=== PATIENT | female | born 1995 | race Caucasian/White ===

== ENCOUNTER 2021-03-05 09:59 | Emergency (ER) | payer OTHER, SELFPAY ==
[2021-03-05 10:11] VITALS: BP 127/90; PULSE 93; RESP 16; TEMP 36.5; O2SAT 99
--- NOTE | 2021-03-05 10:49 | ED.URI ---
HPI - URI/Sore Throat General Chief Complaint: Upper Respiratory Infection Stated Complaint: sore throat Time Seen by Provider: 03/05/21 11:05 Source: patient and RN notes reviewed Mode of arrival: ambulatory Limitations: no limitations History of Present Illness HPI Narrative: 26-year-old female presents with concern for 1 week history of sore throat, fatigue, chest congestion and tightness, rhinorrhea, cough. Reports she has been taking Mucinex without relief. Reports one episode of vomiting related to forceful coughing. Reports trouble sleeping at night due to cough. Reports she is vaccinated for Covid. Reports she took an at-home rapid Covid test on Thursday that was negative. 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 She has been vaccinated for Covid. MD elicited complaint: sore throat and nasal congestion Related Data Allergies Allergy/AdvReac Type Severity Reaction Status Date / Time No Known Allergies Allergy Verified 03/05/21 10:30 Review of Systems Review of Systems: CONSTITUTIONAL: Denies malaise, chills, sweats, or fever. Reports fatigue EYES: Denies visual changes, redness, or discharge. ENT: Reports rhinorrhea, congestion, and sore throat. Denies sinus pain, otalgia CARDIOVASCULAR: Denies chest pain, palpitations, or edema. RESPIRATORY: Reports cough, chest congestion and tightness. Denies dyspnea. GASTROINTESTINAL: Denies abdominal pain, nausea, diarrhea. Reports one episode of vomiting related to coughing SKIN: Denies rash or itching. MUSCULOSKELETAL: Denies myalgia. NEUROLOGIC: Denies headache. All systems reviewed & are unremarkable except as noted in HPI and below PMFSH Comments At time of signature, agree with nursing past medical, surgical, social and family history. There is no relevant family history pertinent to the presenting complaint Exam Narrative: GENERAL: Well-appearing, well-nourished, and in no acute distress. HEAD: Normocephalic EYES: PERRLA, conjunctivae clear ENT: Nares clear, turbinates edematous and erythematous, clear discharge. Mucous membranes moist. TM pearly neal with dull light reflex bilaterally; no tragal tenderness. Oropharynx not erythematous without lesions. Tonsils not enlarged and without exudate, no drooling, no hoarseness, no trismus, uvula midline. NECK: Supple. No lymphadenopathy CHEST: Clear to auscultation, breath sounds equal. No wheezing, rhonchi, rales, or stridor. No respiratory distress, speaks in full sentences. HEART: Regular rate and rhythm. No murmur heard. SKIN: Warm, dry, no rash. NEURO: Alert and oriented x3. PSYCH: Normal mood and affect Course Course Emergency Course: Patient is aware of diagnosis, understands and agrees to treatment plan. Anticipatory guidance given. Patient agrees to follow-up as directed and is aware of reasons to seek care at the emergency department. Portions of this record may have been created with voice recognition software Vital Signs Vital signs: Vital Signs Temperature 97.7 F 03/05/21 10:11 Pulse Rate 93 03/05/21 10:11 Respiratory Rate 16 03/05/21 10:11 Blood Pressure 127/90 03/05/21 10:11 Pulse Oximetry 99 03/05/21 10:11 Temperature 97.7 F 03/05/21 10:11 Pulse Rate 93 03/05/21 10:11 Respiratory Rate 16 03/05/21 10:11 Blood Pressure 127/90 03/05/21 10:11 Pulse Oximetry 99 03/05/21 10:11 Reviewed. MDM - URI/Sore Throat MDM Narrative Medical decision making narrative: Differential diagnosis considered: Menjivar virus, strep pharyngitis, allergic rhinitis, upper respiratory tract infection, sinusitis, rhinosinusitis, nasopharyngitis. viral pharyngitis, otitis media, otitis externa, pneumonia, bronchitis, viral cough syndrome, viral syndrome, and influenza. Exam findings show no acute concerns or changes; patient is non-toxic appearing and is in no distress. Patient is appropriate for outpatient treatment and follow-up. Lab Data Attestation: I reviewed the patient's lab results. Critical Care
== END 2021-03-05 11:15 | disposition home or self-care (01) ==
PROVIDERS: Emergency Provider Nurse Practitioner; PCP Nurse Practitioner Family
DX: J40 Bronchitis, not specified as acute or chronic (principal); Z20.822 Contact with and (suspected) exposure to COVID-19
CPT/HCPCS: 87081; 87426; 87804; 87880; 99203; C9803; G0463